=== PATIENT | female | born 1980 | race Asian ===

== ENCOUNTER 2020-01-15 23:33 | Emergency (ER) | payer BC ==
[2020-01-15] MEDS ORDERED: cloNIDine 0.1 MG Tab PO ONE (23:55)
--- NOTE | 2020-01-16 00:13 | EDM.PDOC ---
ED HPI GENERAL MEDICAL PROBLEM - General Chief Complaint: Headache Stated Complaint: HIGH BLOOD PRESSURE Time Seen by Provider: 01/15/20 23:40 Source of Information: Reports: Patient History Limitations: Reports: No Limitations - History of Present Illness INITIAL COMMENTS - FREE TEXT/NARRATIVE: headache frontal since this am , took tylenol, did not improve,. Took BP and noted it was elevated to 150/90 recheck at 6pm was still elevated on arrival her , noted to be elevated still no chest pain , no palpitations, no sob has family history of HTN Onset: Today Duration: Getting Worse Location: Reports: Head Improves with: Reports: None Worsens with: Reports: None Context: Reports: Activity Associated Symptoms: Reports: Headaches - Related Data Allergies Allergy/AdvReac Type Severity Reaction Status Date / Time amoxicillin Allergy Hives Verified 01/16/20 00:41 Home Meds: Home Meds .Vitamin C 1 tab PO ASDIRECTED 01/16/20 [History] Past Medical History - Past Health History Medical/Surgical History: Denies Medical/Surgical History Social & Family History - Living Situation & Occupation Living situation: Reports: Single Occupation: Employed ED ROS GENERAL - Review of Systems Review Of Systems: See Below Constitutional: Reports: No Symptoms HEENT: Reports: No Symptoms Respiratory: Reports: No Symptoms Cardiovascular: Reports: No Symptoms Endocrine: Reports: No Symptoms GI/Abdominal: Reports: No Symptoms Musculoskeletal: Reports: No Symptoms Skin: Reports: No Symptoms ED EXAM, GENERAL - Physical Exam Exam: See Below Exam Limited By: No Limitations General Appearance: Alert, WD/WN, No Apparent Distress Eye Exam: Bilateral Eye: EOMI Ears: Normal External Exam Nose: Normal Mucosa Throat/Mouth: Normal Oropharynx Head: Atraumatic, Normocephalic Neck: Supple, Non-Tender Respiratory/Chest: No Respiratory Distress, Lungs Clear, Normal Breath Sounds Cardiovascular: Regular Rate, Rhythm GI/Abdominal: Soft, Non-Tender (Female) Exam: Deferred Extremities: Normal Inspection, Normal Range of Motion Neurological: Alert, Oriented, CN II-XII Intact Psychiatric: Normal Affect, Normal Mood Skin Exam: Warm Course - Vital Signs Last Recorded V/S: Last Vital Signs Temp Pulse Resp BP 181/109 H 01/15/20 23:58 Pulse Ox - Orders/Labs/Meds Orders: Active Orders 24 hr Category Date Time Status Chlorthalidone Med 01/16/20 00:57 Once 50 mg PO ONETIME ONE Medication Orders Chlorthalidone (Chlorthalidone) 50 mg PO ONETIME ONE Stop: 01/16/20 00:58 Meds: Medications Generic Name Dose Route Start Last Admin Trade Name Wilbertoq PRN Reason Stop Dose Admin Chlorthalidone 50 mg 01/16/20 00:57 Chlorthalidone PO 01/16/20 00:58 ONETIME ONE Discontinued Medications Generic Name Dose Route Start Last Admin Trade Name Freq PRN Reason Stop Dose Admin Clonidine HCl 0.2 mg 01/15/20 23:55 01/15/20 23:58 Catapres PO 01/15/20 23:56 0.2 mg ONETIME ONE Administration - Re-Assessments/Exams Free Text/Narrative Re-Assessment/Exam: 01/16/20 00:31 pt given clonidine and monitored will start pt on HCTZ 01/16/20 00:57 Departure - Departure Time of Disposition: 01:00 Disposition: Home, Self-Care 01 Condition: Fair Clinical Impression: Hypertension Instructions: How to Take Your Blood Pressure, [id number], DASH Eating Plan, Hypertension, Adult, [id number], Intracerebral Hemorrhage Referrals: PCP,Unknown [Primary Care Provider] - Forms: ED Department Discharge Sepsis Event Note - Focused Exam Vital Signs: Vital Signs BP 01/15/20 23:58 181/109 H Date Exam was Performed: 01/16/20 Time Exam was Performed: 01:00 - My Orders Last 24 Hours: My Active Orders 01/16/20 00:57 Chlorthalidone 50 mg PO ONETIME ONE - Assessment/Plan Last 24 Hours: My Active Orders 01/16/20 00:57 Chlorthalidone 50 mg PO ONETIME ONE
[2020-01-16] MEDS ORDERED: Chlorthalidone 25 MG Tab PO ONE (00:57)
[2020-01-16 03:41] VITALS: BP 129/87; PULSE 85
== END 2020-01-16 03:25 | disposition home or self-care (01) ==
LOC: FB.ED 23:33
DX: I10 Essential (primary) hypertension (principal); Z88.1 Allergy status to other antibiotic agents
CPT/HCPCS: 99283; A9270